=== PATIENT | male | born 2000 | race Two or more races ===

== ENCOUNTER 2023-02-14 08:09 | Emergency (ER) | payer OTHER ==
[~2023-02-14] VITALS: Ht 172.7 cm; Wt 120.0 kg
[2023-02-14 09:47] LABS: BASO # 0.1 10^3/uL (0.0-0.2); BASO % 1.3 % (0.0-1.0); EOS # 0.1 10^3/uL (0.0-0.5); EOS % 2.4 % (0.0-3.0); HEMATOCRIT 47.6 % (42.0-52.0); LYMPH # 2.7 10^3/uL (1.5-5.0); LYMPH % 51.4 % (24.0-44.0); MEAN CORPUSCULAR HEMOGLOBIN 27.6 pg (27.0-33.0); MEAN CORPUSCULAR HGB CONC 33.6 g/dl (32.0-36.5); MEAN CORPUSCULAR VOLUME 82.2 fl (80.0-96.0); MONO # 0.6 10^3/uL (0.0-0.8); MONO % 11.5 % (2.0-8.0); NEUTROPHILS # 1.8 10^3/uL (1.5-8.5); NEUTROPHILS % 33.2 % (36.0-66.0); PLATELET COUNT, AUTOMATED 264 10^3/uL (150-450); RED BLOOD COUNT 5.79 10^6/uL (4.30-6.10); WHITE BLOOD COUNT 5.3 10^3/uL (4.0-10.0)
[2023-02-14] MEDS ORDERED: NS 1,000 ML IV ONE (10:00)
[2023-02-14 10:07] LABS: ETHYL ALCOHOL (ETHANOL) < 0.003 % (0.000-0.010)
[2023-02-14 10:08] LABS: ALBUMIN 3.9 G/DL (3.2-5.2); ALKALINE PHOSPHATASE 69 U/L (46-116); ALT/SGPT 47 U/L (7.0-40); AST/SGOT 24 U/L (<34); BILIRUBIN,DIRECT < 0.1 MG/DL (<0.4); BILIRUBIN,TOTAL 0.2 MG/DL (0.3-1.2); BLOOD UREA NITROGEN 12 MG/DL (9-23); CALCIUM LEVEL 9.2 MG/DL (8.5-10.1); CARBON DIOXIDE LEVEL 27 MMOL/L (20-31); CHLORIDE LEVEL 104 MMOL/L (98-107); CK-MB VALUE MASS 1.4 NG/ML (<3.6); CREATININE FOR GFR 0.89 MG/DL (0.70-1.30); GLOMERULAR FILTRATION RATE > 60.0 (>60); GLUCOSE, FASTING 91 MG/DL (60-100); POTASSIUM SERUM 4.1 MMOL/L (3.5-5.1); SALICYLATE LEVEL < 3.0 MG/DL (<30); SODIUM LEVEL 140 MMOL/L (136-145); TOTAL PROTEIN 7.4 G/DL (5.7-8.2)
[2023-02-14 10:10] LABS: THYROID STIMULATING HORMONE 3.027 uIU/ML (0.55-4.78)
[2023-02-14 10:14] LABS: CPK CREATINE PHOSPHOKINASE 300 U/L (46-171); MB/CK RELATIVE INDEX 0.46 (< OR =4)
[2023-02-14 10:20] LABS: AMPHETAMINES LEVEL URINE NEGATIVE (NEGATIVE); BARBITURATES URINE NEGATIVE (NEGATIVE); BENZODIAZEPINES URINE NEGATIVE (NEGATIVE); COCAINE METABOLITE URINE NEGATIVE (NEGATIVE); METHADONE URINE NEGATIVE (NEGATIVE); OPIATES URINE NEGATIVE (NEGATIVE)
[2023-02-14 10:21] LABS: CANNABINOIDS URINE NEGATIVE (NEGATIVE); PHENCYCLIDINE URINE NEGATIVE (NEGATIVE)
[2023-02-14 11:28] LABS: RSV AMPLIFICATION NEGATIVE (NEGATIVE)
[2023-02-14 12:20] VITALS: BP 121/70; TEMP 97.6
[2023-02-14 12:39] VITALS: O2SAT 97
== END 2023-02-14 13:05 | disposition home or self-care (01) ==
LOC: M ED 08:09
DX: G47.00 Insomnia, unspecified (principal); F43.10 Post-traumatic stress disorder, unspecified; F32.A Depression, unspecified

== ENCOUNTER 2023-04-12 22:28 | Inpatient (IN) | payer OTHER ==
[~2023-04-12] VITALS: Ht 170.2 cm; Wt 117.9 kg
[2023-04-12] MEDS ORDERED: ABIL1TAB11 PO (23:07)
[2023-04-12] MEDS ORDERED: LEXA1TAB PO (23:07)
[2023-04-12] MEDS ORDERED: PROP10TA56 PO (23:07)
[2023-04-12] MEDS ORDERED: VITA100093 PO (23:08)
[2023-04-12] MEDS ORDERED: HOME MED LIST COMPLETE! XX SCH (23:10)
[2023-04-12] MEDS ORDERED: IBUPROFEN 600MG TAB PO PRN (23:30)
[2023-04-13] MEDS ORDERED: MOM 30ML SUSPENSION UDC PO PRN (00:30)
[2023-04-13] MEDS ORDERED: MAALOX 30 ML SUSP *UDC PO PRN (00:30)
[2023-04-13] MEDS: traZODone 50 MG TAB PO PRN ×2 (01:40→20:21)
[2023-04-13 01:55] VITALS: BP 125/74; TEMP 97.4; O2SAT 99
[2023-04-13 06:18] VITALS: BP 121/60; TEMP 97.8; O2SAT 99
[2023-04-13] MEDS: buPROPion **XL** TABLET 150MG (WELLBUTRIN XL) PO SCH (09:56)
[2023-04-13] MEDS: ESCITALOPRAM OXALATE 10 MG TAB (LEXAPRO) PO SCH (10:47)
[2023-04-13] MEDS: VITAMIN D 1,000 INTERNATIONAL UNITS TABLET PO SCH (10:47)
[2023-04-13] MEDS: ACETAMINOPHEN TAB 650MG DOSE (2X325MG) PO PRN (10:47)
[2023-04-13] MEDS: PROPRANOLOL 10 MG TAB PO SCH ×2 (10:51→20:23)
[2023-04-13 15:00] VITALS: BP 124/59; TEMP 97; O2SAT 96
[2023-04-14 06:40] VITALS: BP 135/64; TEMP 99; O2SAT 94
[2023-04-14 07:09] LABS: CHOLESTEROL RISK RATIO 3.46 (<5); HDL CHOLESTEROL 49.9 MG/DL (>40); LDL CHOLESTEROL 107.7 MG/DL (<100); NON-HDL-C 123.1 MG/DL
[2023-04-14] MEDS: PROPRANOLOL 10 MG TAB PO SCH ×2 (08:46→21:16)
[2023-04-14] MEDS: buPROPion **XL** TABLET 150MG (WELLBUTRIN XL) PO SCH (08:46)
[2023-04-14] MEDS: ESCITALOPRAM OXALATE 10 MG TAB (LEXAPRO) PO SCH (08:46)
[2023-04-14] MEDS: VITAMIN D 1,000 INTERNATIONAL UNITS TABLET PO SCH (08:46)
[2023-04-14] MEDS: SUMAtriptan SUCCINATE 25 MG TAB PO PRN ×3 (10:40→18:20)
[2023-04-14] MEDS: NICOTINE 14 MG/24 HR TRANSDERMAL TD SCH (11:13)
[2023-04-14] MEDS: ONDANSETRON 4MG ORAL DISINTEGRATING TAB SL PRN (14:00)
[2023-04-14 17:54] VITALS: BP 120/62; TEMP 97.6; O2SAT 98
[2023-04-14 21:16] VITALS: BP 134/67
[2023-04-14] MEDS: traZODone 50 MG TAB PO PRN (21:17)
[2023-04-15 06:31] VITALS: BP 141/62; TEMP 97.8; O2SAT 98
[2023-04-15] MEDS: ONDANSETRON 4MG ORAL DISINTEGRATING TAB SL PRN (08:05)
[2023-04-15] MEDS: VITAMIN D 1,000 INTERNATIONAL UNITS TABLET PO SCH (08:06)
[2023-04-15] MEDS: PROPRANOLOL 10 MG TAB PO SCH ×2 (08:06→20:46)
[2023-04-15] MEDS: buPROPion **XL** TABLET 150MG (WELLBUTRIN XL) PO SCH (08:06)
[2023-04-15] MEDS: ESCITALOPRAM OXALATE 10 MG TAB (LEXAPRO) PO SCH (08:07)
[2023-04-15] MEDS: NICOTINE 14 MG/24 HR TRANSDERMAL TD SCH (08:07)
[2023-04-15] MEDS: IBUPROFEN 400MG TAB PO PRN (08:07)
[2023-04-15] MEDS: SUMAtriptan SUCCINATE 25 MG TAB PO PRN ×2 (09:24→14:51)
[2023-04-15 17:14] VITALS: BP 137/65; TEMP 97.1
[2023-04-16] MEDS: traZODone 50 MG TAB PO PRN ×2 (00:11→22:40)
[2023-04-16 06:35] VITALS: BP 130/75; TEMP 97.9
[2023-04-16] MEDS: NICOTINE 14 MG/24 HR TRANSDERMAL TD SCH (08:05)
[2023-04-16] MEDS: SUMAtriptan SUCCINATE 25 MG TAB PO PRN (08:10)
[2023-04-16] MEDS: buPROPion **XL** TABLET 150MG (WELLBUTRIN XL) PO SCH (08:11)
[2023-04-16] MEDS: PROPRANOLOL 10 MG TAB PO SCH (08:11)
[2023-04-16] MEDS: VITAMIN D 1,000 INTERNATIONAL UNITS TABLET PO SCH (08:11)
[2023-04-16] MEDS: ESCITALOPRAM OXALATE 10 MG TAB (LEXAPRO) PO SCH (08:11)
[2023-04-16] MEDS: TOPIRAMATE (TopAMAX) 25 MG TAB PO PRN ×2 (12:55→21:14)
[2023-04-16] MEDS: IBUPROFEN 400MG TAB PO PRN (17:12)
[2023-04-16 17:37] VITALS: BP 130/88; TEMP 98.6
[2023-04-16] MEDS: ACETAMINOPHEN TAB 650MG DOSE (2X325MG) PO PRN (18:43)
[2023-04-16] MEDS: PROPRANOLOL 20 MG TAB PO SCH (20:35)
[2023-04-17 06:30] VITALS: BP 119/73; TEMP 97
[2023-04-17] MEDS: buPROPion **XL** TABLET 150MG (WELLBUTRIN XL) PO SCH (08:18)
[2023-04-17] MEDS: VITAMIN D 1,000 INTERNATIONAL UNITS TABLET PO SCH (08:18)
[2023-04-17] MEDS: ESCITALOPRAM OXALATE 10 MG TAB (LEXAPRO) PO SCH (08:18)
[2023-04-17] MEDS: PROPRANOLOL 20 MG TAB PO SCH ×2 (08:18→20:36)
[2023-04-17] MEDS: NICOTINE 14 MG/24 HR TRANSDERMAL TD SCH (08:22)
[2023-04-17] MEDS: TOPIRAMATE (TopAMAX) 25 MG TAB PO PRN (09:11)
[2023-04-17 17:52] VITALS: BP 131/69; TEMP 97.7
[2023-04-17] MEDS: ACETAMINOPHEN TAB 650MG DOSE (2X325MG) PO PRN (18:29)
[2023-04-17] MEDS: TOPIRAMATE (TopAMAX) 25 MG TAB PO SCH (20:36)
[2023-04-17] MEDS: traZODone 50 MG TAB PO PRN (23:01)
[2023-04-18 05:41] VITALS: BP 109/70; TEMP 97.2; O2SAT 100
[2023-04-18] MEDS: VITAMIN D 1,000 INTERNATIONAL UNITS TABLET PO SCH (08:25)
[2023-04-18] MEDS: PROPRANOLOL 20 MG TAB PO SCH ×2 (08:25→20:46)
[2023-04-18] MEDS: diphenhydrAMINE 25MG CAP PO PRN ×2 (08:26→23:18)
[2023-04-18] MEDS: buPROPion **XL** TABLET 150MG (WELLBUTRIN XL) PO SCH (08:26)
[2023-04-18] MEDS: ESCITALOPRAM OXALATE 10 MG TAB (LEXAPRO) PO SCH (08:26)
[2023-04-18] MEDS: TOPIRAMATE (TopAMAX) 25 MG TAB PO SCH ×2 (08:27→20:43)
[2023-04-18] MEDS: NICOTINE 14 MG/24 HR TRANSDERMAL TD SCH (08:27)
[2023-04-18] MEDS: IBUPROFEN 400MG TAB PO PRN (13:38)
[2023-04-18 16:15] VITALS: BP 126/61; TEMP 98.2; O2SAT 98
[2023-04-18] MEDS: traZODone 50 MG TAB PO PRN (23:13)
[2023-04-19 06:35] VITALS: BP 111/51; TEMP 97.1; O2SAT 99
[2023-04-19] MEDS: buPROPion **XL** TABLET 150MG (WELLBUTRIN XL) PO SCH (08:13)
[2023-04-19] MEDS: ESCITALOPRAM OXALATE 10 MG TAB (LEXAPRO) PO SCH (08:13)
[2023-04-19 08:18] VITALS: BP 138/84
[2023-04-19] MEDS: TOPIRAMATE (TopAMAX) 25 MG TAB PO SCH (08:18)
[2023-04-19] MEDS: VITAMIN D 1,000 INTERNATIONAL UNITS TABLET PO SCH (08:18)
[2023-04-19] MEDS: PROPRANOLOL 20 MG TAB PO SCH (08:18)
[2023-04-19] MEDS: NICOTINE 14 MG/24 HR TRANSDERMAL TD SCH (08:21)
[2023-04-19] MEDS ORDERED: BUPR150T12 PO (09:19)
[2023-04-19] MEDS ORDERED: TRAZ-252 PO (09:19)
[2023-04-19] MEDS ORDERED: HYDR-3363 PO (09:19)
[2023-04-19] MEDS ORDERED: TOPA1TAB PO (09:19)
[2023-04-19] MEDS ORDERED: PROP20TA PO (09:19)
[2023-04-19] MEDS ORDERED: LEXA1TAB PO (09:19)
== END 2023-04-19 09:51 | disposition home or self-care (01) | DRG 881 ==
LOC: M ED 22:28 → M ED INP 04-13 00:28 → M PSY 04-13 01:19
PROVIDERS: ADMIT Student in an Organized Health Care Education/Training Program; ATTEND Student in an Organized Health Care Education/Training Program
DX: F32.A Depression, unspecified (principal); R45.851 Suicidal ideations; F43.10 Post-traumatic stress disorder, unspecified; F41.9 Anxiety disorder, unspecified; Z79.899 Other long term (current) drug therapy; E66.9 Obesity, unspecified; G47.33 Obstructive sleep apnea (adult) (pediatric); F17.210 Nicotine dependence, cigarettes, uncomplicated; E55.9 Vitamin D deficiency, unspecified; R51.9 Headache, unspecified